=== PATIENT | male | born 1980 | race Asian ===

== ENCOUNTER 2024-08-14 23:53 | Emergency (ER) | payer OTHER, SELFPAY ==
[2024-08-14 23:56] VITALS: BP 130/95
[2024-08-15 00:29] VITALS: BMI 26.3
[2024-08-15] MEDS: VALTREX 1000 MG PO (01:42)
--- NOTE | 2024-08-15 01:46 | ED.GENMED ---
History of Present Illness
General
Chief Complaint: Skin Problem
Source: patient
Exam Limitations: none
Time Seen by Provider: 08/15/24 01:06
Nursing documentation reviewed up to this point in time: agreed with
History of Present Illness
History of Present Illness:
43-year-old male presenting to the emergency department today with concerns of rash to the right side of his abdomen ongoing for a few days somewhat painful mildly itchy noted some vesicles to the area. Some of the vesicles are now dark in color.
Review of Systems
Review of Systems
Allergies reviewed?: Yes
All Other Systems: ROS reviewed and negative except as documented in HPI and ROS
Phy Exam
Physical Exam
Physical Exam:
GENERAL: Alert , in no apparent distress
EYE: pupils equal and reactive
NECK: Supple, no significant adenopathy.
ENT: o/p clr, mmm.
CARDIAC: Regular rate and rhythm .
LUNGS: Clear breath sounds bilaterally, no acute respiratory distress, no wheezes/rales/rhonchi
ABDOMEN: Soft, without focal tenderness, no r/g, no cvat
NEUROLOGICAL: Alert and oriented, no focal neuro deficits
SKIN: Scattered grouped vesicles to the right side of the abdomen does not cross midline does span around the anterior and posterior. Warm and dry, skin intact.
MUSCULOSKELETAL: No edema, well perfused.
PSYCH: Normal and appropriate interaction.
Course
Orders/Labs/Results
Orders:
Orders
08/15/24 01:28
Valacyclovir HCl [Valtrex] 1,000 mg PO ONCE ONE
Vital Signs
Initial and Last Documented VS:
Initial Vital Signs
Temp Pulse Resp BP Pulse Ox
97.9 F 74 16 130/95 97
08/14/24 23:56 08/14/24 23:56 08/14/24 23:56 08/14/24 23:56 08/14/24 23:56
Last Documented Vital Signs
Temp Pulse Resp BP Pulse Ox
97.9 F 74 16 130/95 97
08/14/24 23:56 08/14/24 23:56 08/14/24 23:56 08/14/24 23:56 08/14/24 23:56
MDM/Problems Addressed
MDM/Problems Addressed:
43-year-old male presenting to the emergency department concerns of rash to the right side of the abdomen. Does appear to be most consistent with potential shingles concerning grouped vesicles and discomfort to the area no evidence of bacterial
infection without significant redness warmth or tenderness palpation started on treatment of antiviral otherwise stable for discharge. Return precautions given.
*Critical Care Note
Total Time (30-74mins, 75-104mins- exclusive of procedures): Not Applicable
ED Attending Note
-
Portions of this chart may have been created with voice recognition software.� Occasional wrong word or��sound alike� substitutions may have occurred due to the inherent limitations of voice recognition software.
Discharge Plan
Departure
Patient Disposition: Home (Routine Discharge)
Date of Disposition: 08/15/24
Time of Disposition: 01:46
Patient with high blood pressure during this ER visit?: No
Condition: Good
Covid-19: Not Applicable
Discharge Problem:
Shingles rash
Instructions: Skin Rash (DC)
Prescriptions:
New
valacyclovir 1 gram tablet
1,000 mg PO TID 7 Days Qty: 21 0RF
Referrals:
Hawk Malki MD [Family Provider] -
Activity Restrictions/Additional Instructions:
You came to the emergency department today with concerns of a rash. You are found to have likely shingles rash. Please take the prescribed medication to keep the area clean and covered. Return for any worsening, new or concerning symptoms.
Interventions
Interventions:
*Risk Screen - Suicide Last Done: 08/14/24 23:56
*General Assessment Last Done: 08/15/24 00:29
*Neglect/Abuse Screening Last Done: 08/14/24 23:56
*ED- Fall Risk Assessment Last Done: 08/15/24 00:29
*ED COVID-19 Vaccine History Last Done: 08/14/24 23:56
*Nursing Disposition Last Done: 08/15/24 01:54
ED-Skin Assessment Last Done: 08/15/24 00:30
Discharge Date and Time
Discharge Date/Time: 08/15/24 01:55
Print Language: POLISH
== END 2024-08-15 01:55 | disposition home or self-care (01) ==
LOC: EMR 23:53
PROVIDERS: EMERGENCY PHYSICIAN Student in an Organized Health Care Education/Training Program; FAMILY PHYSICIAN Family Medicine
DX: B02.9 Zoster without complications (principal)
CPT/HCPCS: 99283